=== PATIENT | female | born 1995 | race Caucasian/White ===

== ENCOUNTER 2023-02-27 15:26 | Outpatient (CLI) | payer MEDICAID, SELFPAY ==
[2023-02-27 16:23] LABS: Basophils # 0.1 K/mm3 (0-0.2); Basophils % 0.5 % (0.1-2.0); Eosinophils # 0.1 K/mm3 (0.0-0.4); Eosinophils % 1.3 % (0.1-12.0); Hematocrit 39.4 % (37.0-47.0); Hemoglobin 13.7 g/dL (12.2-16.2); Lymphocytes # 2.5 K/mm3 (0.7-4.5); Lymphocytes % 22.4 % (10-50); Mean Corpuscular HGB Conc 34.7 g/dL (31.8-35.4); Mean Corpuscular Hemoglobin 28.1 pg (27.0-31.2); Mean Corpuscular Volume 81.1 fl (81-99); Mean Platelet Volume 7.7 fl (7.4-10.4); Monocytes # 0.4 K/mm3 (0.1-1.0); Monocytes % 3.3 % (1.7-9.3); Neutrophils # 8.1 K/mm3 (1.8-7.8); Neutrophils % 72.6 % (37.0-80.0); Platelet Count 246 K/mm3 (142-424); Red Blood Count 4.86 M/mm3 (4.20-5.40); Red Cell Distribution Width 13.6 % (11.5-17.5); White Blood Count 11.1 K/mm3 (4.8-10.8)
[2023-02-27 16:40] LABS: Chloride 107 mmol/L (98-107); Sodium 142 mmol/L (136-145)
[2023-02-27 16:41] LABS: Potassium 4.3 mmoL/L (3.5-5.1)
[2023-02-27 16:43] LABS: Alanine Aminotransferase 28 U/L (12-78); Albumin Level 4.8 g/dl (3.5-5.0); Albumin/Globulin Ratio 1.8 (1.1-1.8); Alkaline Phosphatase 66 U/L (38-126); Anion Gap 14.3 mEq/L (5-15); Aspartate Amino Transferase 29 U/L (14-36); Bilirubin,Total 0.4 mg/dl (0.2-1.3); Blood Urea Nitrogen 11 mg/dl (7-17); Carbon Dioxide 25 mmol/L (22.0-30.0); Estimated Glomerular Filt Rate 102 ml/min (>60); GFR (African American) 123 ML/MIN (>60); Globulin 2.6 g/dL (1.3-3.2); Total Protein,Serum 7.4 g/dl (6.3-8.2)
[2023-02-27 16:44] LABS: Calcium 9.6 mg/dl (8.4-10.2); Glucose 98 mg/dl (74-100)
[2023-02-27 17:12] LABS: HCG,Quantitative < 2 mIU/ml (0-5.42)
== END 2023-02-27 23:59 ==
LOC: LAB 15:29
PROVIDERS: Visit Provider Obstetrics & Gynecology
DX: R87.810 Cervical high risk human papillomavirus (HPV) DNA test positive (principal)
CPT/HCPCS: 36415; 80053; 84702; 85025

== ENCOUNTER 2023-03-02 08:35 | Day surgery (SDC) | payer MEDICAID, SELFPAY ==
[2023-03-02] VITALS (10 sets, daily range): BP systolic 105–136; BP diastolic 74–83; PULSE 74–86; RESP 16–20; TEMP 36.3–36.7; O2SAT 94–99; BMI 37.8
[2023-03-02] MEDS: LACTATED RINGERS 1000ML 1,000 ML 25 ML IV (09:07)
[2023-03-02] MEDS: LIDOCAINE 1% W/EPI 1:100,000 20ML VIAL 20 ML (10:08)
--- NOTE | 2023-03-02 10:39 | P.PNANES_ITS ---
[facility] Disclaimer: The information contained in this section may have been updated after the patient was seen, as this information can be updated by other users. Medical History Personality disorder Surgical History Hx of section Hx of cholecystectomy Hx of tubal ligation Family History Other Cancer Diabetes FHx: mental illness Heart attack Hypertension Social History (Updated 03/02/23 @ 09:13 by Akhil Gan RN) Smoking Status: Current every day smoker tobacco type: e-cigarettes alcohol intake: never substance use type: marijuana current occupational status: unemployed Travel in the last 8 weeks: None [facility] Anesthesia Checklist Patient Identification Patient Identification: Arm Band and Family Structural Data Admitted From: Home Planned Operative Procedure/s: leep Consent for Planned Operative Procedure(s) Verified: Yes Verified Documents: Surgical Consent and History and Physical NPO Status Verified Time NPO: 00:00 Additional verifications Patient : No Anesthesia Reactions: No Hx Blood Transfusions: No Blood Transfusion Reaction: No Cephalosporin Allergy: No Previous Colonoscopy: No Airway Assessment Mallampati Score:: Class III C-Spine Mobility Assessed: Yes Dentition: Good Dentition Neurological Assessment Level of Consciousness: Awake, Alert, Appropriate and Follows Commands Hx Seizures: No Numbness or tingling in extremities: No Anesthesia Plan Anesthesia Risk discussed: Yes ASA Class: II Anesthesia Type: General
--- NOTE | 2023-03-02 10:41 | EXP.ANES.I ---
[facility] Anesthesia Record Part I Anesthesia Record I Intake, IV Amount: 700 Hydration: Adequate Estimated blood loss (mL): 10 Urine output (mL): 0 Blood Products used (#): none Blood Pressure: 132/76 SaO2: 95 Pulse Rate: 83 Airway Patency: Patent Respiratory Rate: 16 Temperature: 97.3 F Patient is:: Drowsy and Stable Stable to PACU at:: 10:28
--- NOTE | 2023-03-02 10:44 | EXP.OP.NOTE ---
Date of procedure: 03/02/23 Pre-op Diagnosis:: 1. Pap smear on 12/26/2022 negative for intraepithelial lesion or malignancy. Positive for HPV 16 2. Colposcopy on 02/07/2023: Biopsy at 9:00-HPV effect, negative, Biopsy at 12:00: HSIL/AMPARO-3, ECC: Negative 3. History of a tubal ligation for sterilization Post-op Diagnosis:: 1. Pap smear on 12/26/2022 negative for intraepithelial lesion or malignancy. Positive for HPV 16 2. Colposcopy on 02/07/2023: Biopsy at 9:00-HPV effect, negative, Biopsy at 12:00: HSIL/AMPARO-3, ECC: Negative 3. History of a tubal ligation for sterilization Procedure performed:: Loop electrosurgical excisional procedure Surgeon:: Aliyah Washington DO LINE UP WORKER:: Other (Ildefonso Moore) Anesthesia: MAC Estimated blood loss (mL): 10 Operative findings:: Enlarged cervix without any gross abnormalities Operative note:: The OR staff was properly equipped with HPV prophylaxis masks. The a coated bivalve speculum was placed in the vagina to identify the cervix, suciton applied. Cervix was prepped. 18mL of local was injected circumferentially around the cervix. Moving from left to right a 20x8mm loop was used to excise the lesion from the anterior lip of the cervix. This process was repeated for the posterior lip of the ectocervix. The was exchanged for the smallest loop and a top hat was created, removing any endocervical dysplasia. The roller ball cautery was used to cauterize the bed of the excised tissue and circumferentially around the lesion. Hemostasis was noted. Monsel's was applied over the lesion for added prophylactic hemostasis. Condition: stable Disposition: same day Specimens:: 1. Anterior ectocervix 2. Posterior ectocervix 3. Endocervix Complications:: None
--- NOTE | 2023-03-02 11:36 | EXP.ANES.II ---
[facility] Anesthesia Record Part II Anesthesia Record Part II Discharge Time: 10:58 Destination: Surgical Day Care (OP Surgery) PACU nurse assessment reviewed?: Yes Patient Condition:: Good Anesthesia Complications:: None Swallowing reflex intact?: Yes Airway Patency: Patent Cyanosis?: No Blood Pressure: 128/74 SaO2: 99 Respiratory Rate: 16 Pulse Rate: 74 Temperature: 97.3 F Mental Status: Alert & Oriented Pain level:: 0 Nausea and/or vomitting:: None Intake, IV Amount: 0 Hydration: Adequate
== END 2023-03-02 11:19 | disposition home or self-care (01) ==
PROVIDERS: PCP Obstetrics & Gynecology; Visit Provider Obstetrics & Gynecology
PROC: (CPT 57522; principal; 2023-03-02 10:15)
DX: N87.1 Moderate cervical dysplasia (principal); Z98.51 Tubal ligation status
CPT/HCPCS: 57522; J2405

== ENCOUNTER 2023-04-19 06:49 | Emergency (ER) | payer MEDICAID, SELFPAY ==
[2023-04-19 06:56] VITALS: BP 169/95; PULSE 88; RESP 19; TEMP 36.6; O2SAT 98; BMI 36.6
[2023-04-19 07:30] VITALS: BP 122/79; PULSE 71; RESP 20; O2SAT 96
[2023-04-19] MEDS: KETOROLAC 30MG/ML VIAL 15 MG IV (07:31)
[2023-04-19] MEDS: ACETAMINOPHEN 500MG TAB 1000 MG PO (07:32)
[2023-04-19] MEDS: PROCHLORPERAZINE 10MG/2ML VIAL 10 MG IV (07:32)
[2023-04-19] MEDS: DEXAMETHASONE 4MG/ML 1ML VIAL 10 MG IV (07:32)
[2023-04-19] MEDS: LACTATED RINGERS 1000ML 1,000 ML 999 ML IV (07:32)
--- NOTE | 2023-04-19 07:40 | HMH.EDGENADL ---
Discharge Plan Disposition Patient Disposition: Home, Self-Care Prescriptions Prescriptions: New prochlorperazine maleate [Compazine] 10 mg tablet 10 mg PO Q6H PRN (Reason: nausea and vomiting) 1 Days Qty: 20 0RF No Action ibuprofen 800 mg tablet 800 mg PO Q8H PRN (Reason: pain) Qty: 60 2RF Referrals Follow up/Referrals: Aliyah Washington DO [Staff Physician] - See instructions Activity Restrictions/Add. Instructions Additional Instructions/Restrictions: If you begin having another migraine at home, 1000 mg Tylenol, 800 mg ibuprofen, 10 mg Compazine and 25 mg Benadryl if you start getting restless from the Compazine. Call your family doctor to establish care for this visit to the emergency department and schedule follow-up within 48 hours to ensure improvement. If you have any worsening of your condition or any other concerning signs or symptoms, return to the emergency department or your primary care doctor for further evaluation. Clinical Impressions Clinical Impression: Migraine Discharge ED Provider: Bob De La Paz General Adult HPI General Chief complaint: Headache Stated complaint: woke up w/ throbbing headache Time Seen by Provider: 04/19/23 06:58 Mode of Arrival: Family Vehicle Source of Information: Patient Limitations: No Limitations Description of Symptoms (Recalled from ER Triage Doc. by RN): moderate headache since last night History of Present Illness HPI narrative: This is a 27 female with history of intermittent migraines and headaches not on controller medication presenting with headache. Patient states that she started getting a headache last night just before bed. Took 800 mg ibuprofen which took away most of the pain. She states she went to bed, then woke up in the middle of the night with a headache even worse. She was tearful, crying. Waited until this morning to come to the emergency department. Still having mild symptoms. Denies blurry vision, double vision, vomiting, fevers, chills, DVT or PE risk factors, neck stiffness, sudden onset, facial swelling, neurologic deficits, or any other concerns. The pain is currently mild, feels like pressure behind both of her eyes which is relieved partially by rubbing her eyes, does not radiate. Related Data Previous Rx's Medication Instructions Recorded ibuprofen 800 mg tablet 800 mg PO Q8H PRN pain #60 tabs 03/02/23 prochlorperazine maleate 10 mg 10 mg PO Q6H PRN nausea and 04/19/23 tablet (Compazine) vomiting 24 hours #20 tabs Allergies Allergy/AdvReac Type Severity Reaction Status Date / Time amoxicillin Allergy Intermediate Hives Verified 03/09/23 10:48 latex Allergy Mild Unknown Verified 03/09/23 10:48 allergy reaction [facility] Disclaimer: The information contained in this section may have been updated after the patient was seen, as this information can be updated by other users. Medical History (Updated 04/19/23 @ 08:53 by Bob De La Paz MD) Personality disorder Surgical History (Updated 03/09/23 @ 10:52 by JIMMIE Feldman) H/O LEEP Hx of tubal ligation Hx of section Hx of cholecystectomy Family History Other Cancer Diabetes FHx: mental illness Heart attack Hypertension Social History Smoking Status: Unknown if ever smoked alcohol intake: never substance use type: marijuana current occupational status: unemployed Travel in the last 8 weeks: None ROS Obtained: Yes All systems reviewed & no additional complaints except as documented Physical Exam General General appearance: alert and in no apparent distress Head Head exam: atraumatic and normocephalic Eye Eye exam: Present normal appearance, PERRL and EOMI ENT ENT exam: Present mucous membranes moist Neck Neck exam: Present normal inspection, full ROM and trachea midline Respiratory Respiratory exam: Present normal lung sounds bilaterally; Absent respiratory distress, wheezes, stridor, accessory muscle use or prolonged expiratory phase Cardiovascular Cardiovascular exam: Present regular rate and normal rhythm Abdominal Exam Abdominal exam: Present soft; Absent distention, tenderness, guarding, rebound or rigidity Extremities Exam Extremities exam: Absent edema Neurological Exam Neurological exam: Present alert, oriented X3, CN II-XII intact and normal gait; Absent motor sensory deficit Skin Skin exam: Present warm and dry; Absent diaphoresis or erythema Medical Decision Making Medical Records Medical records reviewed: Yes I reviewed the patient's medical records. Dmitriy Inquiry Pt receiving controlled substance: No Dmitriy was queried for this patient: No Vital Signs: 04/19/23 06:56 04/19/23 07:30 04/19/23 07:45 Temperature 97.8 F Temperature Source Oral Pulse Rate 71 69 Pulse Rate [Right Brachial] 88 Respiratory Rate 19 20 20 Blood Pressure 122/79 119/70 Blood Pressure [Right Arm] 169/95 H Blood Pressure Mean 93 86 Blood Pressure Mean [Right Arm] 119 Blood Pressure Source [Right Arm] Automatic Cuff Blood Pressure Position [Right Arm] Sitting 02 Sat by Pulse Oximetry 98 96 96 Oxygen Delivery Method Room Air Lab Data Lab Results 04/19/23 07:08: WBC 10.5, RBC 4.70, Hgb 13.3, Hct 40.3, MCV 85.6, MCH 28.3, MCHC 33.1, RDW 14.0, Plt Count 210, MPV 7.8, Neut % (Auto) 70.3, Lymph % (Auto) 24.2, [place] % (Auto) 3.1, Eos % (Auto) 1.6, Baso % (Auto) 0.8, Neut # (Auto) 7.4, Lymph # (Auto) 2.5, [place] # (Auto) 0.3, Eos # (Auto) 0.2, Baso # (Auto) 0.1, Sodium 141, Potassium 4.2, Chloride 109 H, Carbon Dioxide 21 L, Anion Gap 15.2 H, BUN 10, Creatinine 0.60, Estimated Creat Clear 226, Estimated GFR 122, Est GFR ( Amer) 147, Glucose 93, Calcium 9.8, Total Bilirubin 0.5, AST 26, ALT 24, Alkaline Phosphatase 62, Total Protein 7.4, Albumin 4.8, Globulin 2.6, Albumin/Globulin Ratio 1.8 04/19/23 07:08 04/19/23 07:08 Orders (Tests/Meds): ED MEDICATIONS Discontinued Medications Generic Name Dose Route Start Last Admin Trade Name Puneet PRN Reason Stop Dose Admin Acetaminophen 1,000 mg 04/19/23 07:18 04/19/23 07:32 Acetaminophen 500mg Tab PO 04/19/23 07:19 1,000 mg ONCE ONE Administration Dexamethasone Sodium Phosphate 10 mg 04/19/23 07:18 04/19/23 07:32 Dexamethasone 4mg/Ml 1ml Vial IV 04/19/23 07:19 10 mg ONCE ONE Administration Lactated Ringer's 1,000 mls @ 999 mls/hr 04/19/23 07:18 04/19/23 07:32 Lactated Ringer's 1000 Ml Bag IV 04/19/23 08:18 999 mls/hr .Q1H1M ONE Administration Ketorolac Tromethamine 15 mg 04/19/23 07:18 04/19/23 07:31 Ketorolac 30mg/Ml Vial IV 04/19/23 07:19 15 mg ONCE ONE Administration Prochlorperazine Edisylate 10 mg 04/19/23 07:18 04/19/23 07:32 Prochlorperazine 10mg/2ml Vial IV 04/19/23 07:19 10 mg ONCE ONE Administration ORDERS Category Date Time Status CBC w/Auto Diff [Complete Blood Count Auto Diff] Stat Lab 04/19/23 07:08 Completed CMP [Comprehensive Metabolic Panel] Stat Lab 04/19/23 07:08 Completed Medical Decision Narrative: This is a 27 female with history of surgical sterilization, intermittent migraines and headaches not on controller medication presenting with headache. Patient states that she started getting a headache last night just before bed. Took 800 mg ibuprofen which took away most of the pain. She states she went to bed, then woke up in the middle of the night with a headache even worse. She was tearful, crying. Waited until this morning to come to the emergency department. Still having mild symptoms. Denies blurry vision, double vision, vomiting, fevers, chills, DVT or PE risk factors, neck stiffness, sudden onset, facial swelling, neurologic deficits, or any other concerns. The pain is currently mild, feels like pressure behind both of her eyes which is relieved partially by rubbing her eyes, does not radiate. History was obtained via conversation with patient. On arrival, patient hemodynamically stable, alert, oriented x4, appropriate, GCS 15, moving all extremities spontaneously, pupils equal and reactive to light. Full physical exam performed and significant for well-appearing woman in no acute distress. Cranial nerve, cerebellar, motor, sensory exams within normal limits. No neck stiffness or tenderness, no meningismus. Cardiopulmonary exam within normal limits, no lower extremity edema and pulses equal and symmetric. Differential includes migraine, headache, intracranial hemorrhage, cerebral DVT, among others. Patient was given Compazine, Decadron, Toradol, fluid bolus, acetaminophen for symptomatic management and correction of underlying abnormalities. Workup independently interpreted and significant for nonactionable hematologic workup. CT head with venous phase was considered, but not deemed necessary at this time. On reevaluation, patient feeling much better without headache and requesting to leave. Still neuro intact. I feel a cerebral DVT is incredibly unlikely in this patient. Given patient presentation, workup, history, this most likely represents acute migraine. Because patient at baseline without signs or symptoms of clinical decompensation, deemed appropriate for discharge. Results were relayed to patient who voiced understanding and were agreeable to outpatient management and follow up. At the time of discharge the patient was hemodynamically stable, tolerating PO, and mobilizing appropriately. Critical Care Critical Care Time Critical Care Time: No
[2023-04-19 07:45] VITALS: BP 119/70; PULSE 69; RESP 20; O2SAT 96
--- NOTE | 2023-04-19 07:57 | PC.NURSE ---
Pt ambulatory to bathroom and back to bed. Pt advised she was restless, and resdy to go home RN and Dr. De La Paz notified. Call light within reach.
[2023-04-19 08:01] VITALS: BP 149/80; PULSE 92; RESP 18; O2SAT 98
[2023-04-19 08:03] LABS: Alanine Aminotransferase 24 U/L (12-78); Albumin Level 4.8 g/dl (3.5-5.0); Aspartate Amino Transferase 26 U/L (14-36); Blood Urea Nitrogen 10 mg/dl (7-17); Chloride 109 mmol/L (98-107); Creatinine Clearance Estimated 226 mL/min (50-200); Estimated Glomerular Filt Rate 122 ml/min (>60); GFR (African American) 147 ML/MIN (>60); Glucose 93 mg/dl (74-100); Potassium 4.2 mmoL/L (3.5-5.1); Sodium 141 mmol/L (136-145)
[2023-04-19 08:15] LABS: Basophils # 0.1 K/mm3 (0-0.2); Basophils % 0.8 % (0.1-2.0); Eosinophils # 0.2 K/mm3 (0.0-0.4); Eosinophils % 1.6 % (0.1-12.0); Hematocrit 40.3 % (37.0-47.0); Hemoglobin 13.3 g/dL (12.2-16.2); Lymphocytes # 2.5 K/mm3 (0.7-4.5); Lymphocytes % 24.2 % (10-50); Mean Corpuscular HGB Conc 33.1 g/dL (31.8-35.4); Mean Corpuscular Hemoglobin 28.3 pg (27.0-31.2); Mean Corpuscular Volume 85.6 fl (81-99); Mean Platelet Volume 7.8 fl (7.4-10.4); Monocytes # 0.3 K/mm3 (0.1-1.0); Monocytes % 3.1 % (1.7-9.3); Neutrophils # 7.4 K/mm3 (1.8-7.8); Neutrophils % 70.3 % (37.0-80.0); Platelet Count 210 K/mm3 (142-424); White Blood Count 10.5 K/mm3 (4.8-10.8)
[2023-04-19 08:30] VITALS: BP 142/97; PULSE 54; RESP 18; O2SAT 98
[2023-04-19 08:35] LABS: Albumin/Globulin Ratio 1.8 (1.1-1.8); Alkaline Phosphatase 62 U/L (38-126); Anion Gap 15.2 mEq/L (5-15); Bilirubin,Total 0.5 mg/dl (0.2-1.3); Calcium 9.8 mg/dl (8.4-10.2); Carbon Dioxide 21 mmol/L (22.0-30.0); Globulin 2.6 g/dL (1.3-3.2); Total Protein,Serum 7.4 g/dl (6.3-8.2)
--- NOTE | 2023-04-19 08:46 | PC.NURSE ---
pt reports headache is resolved. she ambulated to the bathroom. denies nausea and vomiting
--- NOTE | 2023-04-19 08:49 | PC.NURSE ---
DR LEON AT BEDSIDE TO UPDATE PT
[2023-04-19 08:53] VITALS: BP 142/96; PULSE 80; RESP 16; TEMP 36.7; O2SAT 98
== END 2023-04-19 09:03 | disposition home or self-care (01) ==
PROVIDERS: Emergency Provider Emergency Medicine
DX: G43.909 Migraine, unspecified, not intractable, without status migrainosus (principal)
CPT/HCPCS: 80053; 85025; 96361; 96374; 96375; 99284

== ENCOUNTER 2023-05-03 08:32 | Emergency (ER) | payer MEDICAID, SELFPAY ==
[2023-05-03 08:45] VITALS: BP 114/70; PULSE 88; RESP 20; TEMP 37.4; O2SAT 98; BMI 37.5
--- NOTE | 2023-05-03 09:01 | ED_ITS ---
Discharge Plan Disposition Patient Disposition: Home, Self-Care Condition: Good Prescriptions Prescriptions: New azithromycin [Zithromax] 250 mg tablet 250 mg PO UD DOSE PK Qty: 6 0RF Rx Instructions: Take two (2) tablets today, then one (1) tablet days #2 thru #5 [id number] [Bromfed DM] 2-30-10 mg/5 mL Syrup 5 ml PO Q6H PRN (Reason: Cough) Qty: 240 0RF Referrals Follow up/Referrals: Provider,Referral, MD [Primary Care Provider] - See instructions Activity Restrictions/Add. Instructions Additional Instructions/Restrictions: Drink plenty of fluids. Take tylenol or ibuprofen for pain or fever. Take the medications as directed. Follow up with your regular doctor. GO TO THE ER FOR ANY WORSENING SYMPTOMS Clinical Impressions Clinical Impression: Pharyngitis, Exposure to strep throat Stand Alone Forms Stand Alone Forms: Work/School Release Instructions Patient Instructions: Strep Throat, DI for Strep Throat Discharge ED Provider: Dinh José [facility] General Stated complaint: possible strep v/d Mode of Arrival: Ambulatory Source of Information: Patient Limitations: No Limitations Time Seen by Provider: 05/03/23 09:01 Description of Symptoms (Recalled from Triage Doc. by RN): PATIENT C/O VOMITING, LOW-GRADE FEVER, BODY ACHES, AND DIARRHEA THAT STARTED LAST NIGHT HEENT Symptoms (Recalled from RN notes): No Resp Symptoms (Recalled from RN notes): No Skin Symptoms (Recalled from RN notes): No MS Symptoms (Recalled from RN notes): No Functional Status (Recalled from RN notes): WNL History of Present Illness Provider Complaint: She states that for the past 2 days she has had sore throat, chills, low grade fever, and malaise. She has been exposed to strep throat in her house. Related Data Previous Rx's Medication Instructions Recorded azithromycin 250 mg tablet 250 mg PO UD DOSE PK #6 tabs 05/03/23 (Zithromax) [id number]-[id number] 5 ml PO Q6H PRN Cough #240 mL 05/03/23 2 mg-30 mg-10 mg/5 mL oral syrup (Bromfed DM) Allergies Allergy/AdvReac Type Severity Reaction Status Date / Time amoxicillin Allergy Intermediate Hives Verified 03/09/23 10:48 latex Allergy Mild Unknown Verified 03/09/23 10:48 allergy reaction Worker's Comp Is this a Worker's Comp case?: No [facility] Disclaimer: The information contained in this section may have been updated after the patient was seen, as this information can be updated by other users. Medical History (Updated 05/03/23 @ 09:24 by Dinh José APRN) Personality disorder Surgical History (Updated 03/09/23 @ 10:52 by JIMMIE Feldman) H/O LEEP Hx of tubal ligation Hx of section Hx of cholecystectomy Family History Other Cancer Diabetes FHx: mental illness Heart attack Hypertension Social History Smoking Status: Unknown if ever smoked alcohol intake: never substance use type: marijuana current occupational status: unemployed Travel in the last 8 weeks: None ROS Obtained: Yes All systems reviewed & no additional complaints except as documented Constitutional Constitutional: Reports chills and Reports fever(s) Eyes Eyes: Denies eye discharge ENT Ears, Nose, Mouth, and Throat: Reports as per HPI Cardiovascular Cardiovascular: Denies chest pain Respiratory Respiratory: Denies chest congestion and Reports cough Gastrointestinal Gastrointestingal: Reports nausea; Denies abdominal pain, constipation, cramping, diarrhea or vomiting Musculoskeletal Musculoskeletal: Denies arthralgias Integumentary/Breasts Skin/Breast: Denies rash Neurologic Neurologic: Denies paresthesias Physical Exam General General appearance: alert and in no apparent distress Head Head exam: atraumatic, normocephalic and normal inspection Eye Eye exam: Present normal appearance, PERRL and EOMI ENT ENT exam: Present mucous membranes moist and normal external ear exam Expanded ENT Exam TM/Canal exam: Bilateral TM: erythema and bulging Nose exam: Absent sinus tenderness Mouth exam: Present normal external inspection; Absent drooling Teeth exam: Present normal inspection Throat exam: Present tonsillar erythema, tonsillomegaly and tonsillar exudate Neck Neck exam: Present normal inspection, full ROM and trachea midline; Absent tenderness, meningismus or lymphadenopathy Chest Chest inspection: Present normal inspection and symmetric chest wall rise; Absent tenderness Respiratory Respiratory exam: Present normal lung sounds bilaterally; Absent respiratory distress, wheezes or stridor Cardiovascular Cardiovascular exam: Present regular rate and normal rhythm; Absent systolic murmur or diastolic murmur Abdominal Exam Abdominal exam: Present soft and normal bowel sounds; Absent distention, tenderness, guarding, rebound or rigidity Extremities Exam Extremities exam: Present normal inspection and normal capillary refill; Absent calf tenderness Back Exam Back exam: Present normal inspection and full ROM; Absent tenderness, CVA tenderness (R) or CVA tenderness (L) Neurological Exam Neurological exam: Present alert, oriented X3 and CN II-XII intact Psychiatric Psychiatric exam: Present normal affect and normal mood Skin Skin exam: Present warm, dry, intact and normal color Medical Decision Making Medical Records Medical records reviewed: No I reviewed the patient's medical records. Dmitriy Inquiry Pt receiving controlled substance: No Vital Signs: 05/03/23 08:45 Temperature 99.4 F Temperature Source Oral Pulse Rate [Left Brachial] 88 Respiratory Rate 20 Blood Pressure [Left Arm] 114/70 Blood Pressure Mean [Left Arm] 84 Blood Pressure Source [Left Arm] Automatic Cuff Blood Pressure Position [Left Arm] Sitting 02 Sat by Pulse Oximetry 98 Oxygen Delivery Method Room Air Lab Data Lab results reviewed: Yes I reviewed the patient's lab results.
[2023-05-03 09:04] LABS: UTC Strep Screen (Rapid) Negative (Negative)
[2023-05-03 09:05] LABS: UTC Influenza A Antigen Negative (Negative); UTC Influenza B Antigen Negative (Negative)
[2023-05-03 09:18] VITALS: BP 114/70; PULSE 88; RESP 20; TEMP 37.4; O2SAT 98
== END 2023-05-03 09:28 | disposition home or self-care (01) ==
PROVIDERS: Emergency Provider Nurse Practitioner Family
DX: J02.9 Acute pharyngitis, unspecified (principal); R50.9 Fever, unspecified; R53.81 Other malaise; Z20.818 Contact with and (suspected) exposure to other bacterial communicable diseases; Z56.0 Unemployment, unspecified
CPT/HCPCS: 87804; 87880; 99204; 99212; G0463

== ENCOUNTER 2025-02-02 23:29 | Emergency (ER) | payer MEDICAID, SELFPAY ==
--- NOTE | 2025-02-02 23:33 | ED_ITS ---
Discharge Plan Disposition Patient Disposition: Home, Self-Care Prescriptions Prescriptions: New clindamycin HCl 150 mg capsule 300 mg PO TID 7 Days Qty: 42 0RF No Action quetiapine 50 mg tablet PO trazodone 50 mg tablet 50 mg PO QPM lamotrigine 100 mg tablet PO fluticasone propionate [Flonase Allergy Relief] 50 mcg/actuation spray,suspension 2 spray intranasal DAILY Qty: 16 2RF Rx Instructions: administer into each nostril daily Orilissa 150 mg tablet 150 mg PO DAILY Qty: 30 4RF Referrals Follow up/Referrals: Provider,Referral, MD [Primary Care Provider, Medical] - See instructions Activity Restrictions/Add. Instructions Additional Instructions/Restrictions: Please follow-up with your dentist as discussed. Recommend not using your mouthguard until you follow-up. I sent a prescription for antibiotics that will cover for dental infection. Please consider taking if you develop fever, tooth pain or other signs of infection. Recommend taking Tylenol and ibuprofen every 6 hours as needed for pain. Clinical Impressions Clinical Impression: Jaw pain Print Language Print Language: Azerbaijani Discharge ED Provider: Uriah Sandhu General Adult HPI General Chief complaint: Dental/Oral Stated complaint: Right jaw pain Time Seen by Provider: 02/02/25 23:33 History of Present Illness HPI narrative: 29-year-old female presents for right-sided jaw pain. Symptoms been ongoing since yesterday. She recently got a new mouth piece/bite guard from her dentist. She has never used one before. She grinds her teeth and that is why they got her 1. She has had some difficulties with dental caries and tooth pain in the past, but reports no tooth pain currently and does not think that she has any obvious dental trauma or infection. She reports some right-sided ear pain as well. She was seen at a urgent care and they thought it was TMJ. She reports the pain has been worsening. Related Data Home Medications ?Medication ?Instructions ?Recorded ?Confirmed quetiapine 50 mg tablet mg PO 09/04/24 02/02/25 lamotrigine 100 mg tablet mg PO 02/02/25 02/02/25 trazodone 50 mg tablet 50 mg PO QPM 02/02/25 Previous Rx's ?Medication ?Instructions ?Recorded elagolix 150 mg tablet (Orilissa) 150 mg PO DAILY #30 tabs 09/02/25 clindamycin HCl 150 mg capsule 300 mg (2 x 150 mg) PO TID 7 days 02/02/25 #42 caps fluticasone propionate 50 2 spray intranasal DAILY #16 grams 02/02/25 mcg/actuation nasal spray,suspension (Flonase Allergy Relief) Allergies Allergy/AdvReac Type Severity Reaction Status Date / Time amoxicillin Allergy Intermediate Hives Verified 02/02/25 19:40 latex Allergy Mild Unknown Verified 02/02/25 19:40 allergy reaction PFSH [facility] Disclaimer: The information contained in this section may have been updated after the patient was seen, as this information can be updated by other users. Medical History (Updated 02/02/25 @ 23:44 by Uriah Sandhu MD) Ear pain Personality disorder Surgical History H/O LEEP Hx of tubal ligation Hx of section Hx of cholecystectomy Family History Other Cancer Diabetes FHx: mental illness Heart attack Hypertension Social History Smoking Status: Former smoker tobacco type: e-cigarettes alcohol intake: never substance use type: marijuana current occupational status: unemployed Travel in the last 8 weeks?: None Have you lived/traveled outside [place] in past 30 days?: No Contact w/someone who lives/traveled outside [place] past 30 days?: No Exposure to someone with infectious disease in past 14 days?: No Do you have a fever (greater than 100.4 F or 38 C)?: No Have you tested positive for COVID-19?: No Exposed to someone with COVID-19 in past 14 days?: No Do you have a sore throat?: No Do you have a cough?: No Do you have any weakness?: No Do you have any diarrhea?: No Are you experiencing any unusual bleeding?: No Do you have any muscle aches/pain?: No Do you have any abdominal pain?: No Are you experiencing loss of taste or smell?: No Other Medical History Have you received the Pneumonia Vaccine: No ROS Obtained: Yes All systems reviewed & no additional complaints except as documented Physical Exam General General appearance: alert and in no apparent distress Head Head exam: atraumatic and normocephalic Eye Eye exam: Present normal appearance, PERRL and EOMI ENT ENT exam: Present normal oropharynx, normal external ear exam and other (No tooth tenderness to palpation, no obvious dental fractures, abscess, erythema) Neck Neck exam: Present normal inspection and full ROM Chest Chest inspection: Present normal inspection and symmetric chest wall rise; Absent tenderness Respiratory Respiratory exam: Present normal lung sounds bilaterally; Absent respiratory distress Cardiovascular Cardiovascular exam: Present regular rate and normal rhythm Abdominal Exam Abdominal exam: Present soft; Absent distention, tenderness or guarding Extremities Exam Extremities exam: Present normal inspection; Absent edema or joint swelling Back Exam Back exam: Present normal inspection; Absent tenderness Neurological Exam Neurological exam: Present alert and oriented X3; Absent motor sensory deficit Psychiatric Psychiatric exam: Present normal affect and normal mood Skin Skin exam: Present warm, dry and normal color Lymphatic Lymphatic Findings: no adenopathy Medical Decision Making Medical Records Medical records reviewed: Yes I reviewed the patient's medical records. Screening: Per USPSTF and CDC recommendations, given the prevalence of disease in our [facility], it is our hospital?s policy to screen for HIV and viral Hepatitis for all patients aged 18 and over and those with ongoing risk factors. Dmitriy Inquiry Pt receiving controlled substance: No Dmitriy was queried for this patient: No Vital Signs: 02/02/25 23:44 02/02/25 23:47 Temperature 98.4 F 98.4 F Temperature Source Oral Pulse Rate 71 Pulse Rate [Right] 71 Respiratory Rate 16 16 Blood Pressure 167/106 H Blood Pressure [Right Arm] 167/106 H Blood Pressure Mean [Right Arm] 126 02 Sat by Pulse Oximetry 99 Oxygen Delivery Method Room Air Room Air Lab Data Lab results reviewed: Yes I reviewed the patient's lab results. Orders (Tests/Meds): ED MEDICATIONS Discontinued Medications Generic Name Dose Route Start Last Admin Trade Name Freq PRN Reason Stop Dose Admin Oxycodone HCl 5 mg 02/02/25 23:43 02/02/25 23:50 Oxycodone 5mg Immediate Release Tablet PO 02/02/25 23:44 5 mg ONCE ONE Administration Medical Decision Narrative: 29-year-old female without significant past medical history presents for wo rsening right sided jaw pain. History was obtained via interactive discussion with patient. On arrival, patient is [afebrile, hemodynamically stable, satting appropriately, alert, oriented x4, GCS 15], moving all extremities spontaneously. Full physical exam performed and significant for no evidence of dental carry, fracture or intraoral infection Differential includes but is not limited to TMJ, odontogenic infection, facial pain syndrome. Patient was given 1 dose of oxycodone in the ER. She was given Tylenol and ibuprofen prior to arrival. Given normal physical exam and the recent introd uction of a new bite guard, I think TMJ does make sense as an underlying etiology. Recommend she stop using the bite guard and talk to her dentist. I sent a prescription for clindamycin for coverage of dental infection with instructions to begin taking it if she develops fever or other signs of a dental infection. Patient was agreeable to plan was discharged in stable condition. Return precautions given. Procedures Risk/Benefits of Procedure(s) Were Explained: Yes Critical Care Critical Care Time Critical Care Time: No
[2025-02-02 23:44] VITALS: BP 167/106; PULSE 71; RESP 16; TEMP 36.9; O2SAT 99; BMI 34.0
[2025-02-02 23:47] VITALS: BP 167/106; PULSE 71; RESP 16; TEMP 36.9; O2SAT 99
[2025-02-02] MEDS: OXYCODONE 5MG IMMEDIATE RELEASE TABLET 5 MG PO (23:50)
== END 2025-02-03 | disposition home or self-care (01) ==
PROVIDERS: Emergency Provider Emergency Medicine
DX: R68.84 Jaw pain (principal)
CPT/HCPCS: 99283